=== PATIENT | male | born 1960 | race Caucasian/White ===

== ENCOUNTER 2020-09-01 00:47 | Emergency (ER) | payer SELFPAY ==
[~2020-09-01] VITALS: Ht 175.3 cm; Wt 91.0 kg
[2020-09-01 05:05] VITALS: BP 102/67
== END 2020-09-01 06:00 | disposition home or self-care (01) ==
LOC: ER 00:47
DX: G89.29 Other chronic pain (principal); M54.9 Dorsalgia, unspecified; J44.9 Chronic obstructive pulmonary disease, unspecified; E11.9 Type 2 diabetes mellitus without complications; R60.0 Localized edema
CPT/HCPCS: 99283